=== PATIENT | female | born 1975 | race Caucasian/White ===

== ENCOUNTER 2016-10-04 13:45 | Emergency (ER) ==
[2016-10-04 13:50] VITALS: BP 108/70; TEMP 99.7; BMI 24.1
--- NOTE | 2016-10-04 16:00 | ED.PDOC ---
General ED Provider: Dr. GLEN DA SILVA JR Chief Complaint: Tooth Problem Stated Complaint: LEFT UPPER TEETH ACHING[End]since 09/22 99.7 102 18 98% 108/ 70 8/10 has pain to left upper gums/teeth after hesham--pain off and on-- now has sl swelling/tenderness to left neck[End] Time Seen by Physician: 15:59 Mode of Arrival: Walk-In Information Source: Patient Exam Limitations: No limitations Nursing and Triage Documentation Reviewed and Agree: No EENT Complaint Exam - Dental/Oral Complaint/Exam Tooth Findings: Present: Gross decay, Gross caries Teeth Picture: 1 - tender-- several carious teeth appear toneed extraction Review of Systems - Review Of Systems Constitutional: Reports: No symptoms Eyes: Reports: No symptoms Ears, Nose, Mouth, Throat: Reports: Mouth pain Respiratory: Reports: No symptoms Cardiac: Reports: No symptoms GI: Reports: No symptoms : Reports: No symptoms Musculoskeletal: Reports: No symptoms Skin: Reports: No symptoms Neurological: Reports: No symptoms Endocrine: Reports: No symptoms Hematologic/Lymphatic: Reports: No symptoms All Other Systems: Other Past Medical History - Past Medical History Previously Healthy: Yes Endocrine: Reports: None Cardiovascular: Reports: None Respiratory: Reports: None Hematological: Reports: None Gastrointestinal: Reports: None Genitourinary: Reports: None Neuro/Psych: Reports: None Musculoskeletal: Reports: None, 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 ) Cancer: Reports: None Last Menstrual Period: 3 DAYS AGO - Surgical History General Surgical History: Reports: Tubal ligation (TUBAL LIGATION) - Family History Family History: Reports: None - Social History Smoking Status: Current some day smoker Hx Substance Use: No Alcohol Screening: None - Immunizations Tetanus Shot up to Date: No Physical Exam - Physical Exam Appearance: Well-appearing Pain Distress: Moderate Eyes: ALIN, EOMI, Conjunctiva clear ENT: Nose normal (eacs excoriated bilaterally), Oropharynx normal Neck: Supple Respiratory: Airway patent, Breath sounds clear, Breath sounds equal, Respirations nonlabored Cardiovascular: RRR, Pulses normal, No rub, No murmur Critical Care Note - Critical Care Note Total Time (mins): 0 Course - Course Vital Signs: Temp Pulse Resp BP Pulse Ox 10/04/16 13:46 99.7 F H 102 H 18 108/70 98 Departure - Departure Time of Disposition: 16:10 Disposition: HOME SELF-CARE Discharge Problem: Toothache, Dental caries Instructions: Dental Caries (ED), Dental Abscess (ED), Toothache (ED) Condition: Fair Pt referred to PMD for follow-up: Yes (dentist) Additional Instructions: follow up with dentist as soon as possinle Motrin for pain Presto for pain not controlled amoxicillin for infection teeth need repair or removal will continue to cause health issues if not resolved Prescriptions: Hydrocodone Bit/Acetaminophen [Presto 5-325] 1 - 2 tab PO Q6HR PRN #12 tablet PRN Reason: pain Amoxicillin 500 mg PO TID #30 tablet Ibuprofen [Motrin] 600 mg PO QID PRN #30 tablet PRN Reason: PAIN Allergies/Adverse Reactions: Allergies No Known Allergies Allergy (Verified 10/04/16 13:46) Home Medications: Ambulatory Orders Amoxicillin 500 mg PO TID #30 tablet 10/04/16 Hydrocodone Bit/Acetaminophen [Presto 5-325] 1 - 2 tab PO Q6HR PRN #12 tablet 09/08 Ibuprofen [Motrin] 600 mg PO QID PRN #30 tablet 10/04/16
== END 2016-10-04 16:18 | disposition home or self-care (01) ==
LOC: ED 13:45
DX: K02.7 Dental root caries (principal); K04.7 Periapical abscess without sinus; K08.89 Other specified disorders of teeth and supporting structures; F17.210 Nicotine dependence, cigarettes, uncomplicated
CPT/HCPCS: 99282

== ENCOUNTER 2017-04-11 15:18 | Emergency (ER) ==
[2017-04-11 15:24] VITALS: BP 122/79; TEMP 100; BMI 22.1
--- NOTE | 2017-04-11 16:06 | ED.PDOC ---
General ED Provider: Dr. GLEN DA SILVA JR Chief Complaint: Cough Stated Complaint: onset with mild cough but has worsened now--has camped outdoors recently making it worse--also thinks has uti--has burning and freq-- pain to left lower quad--[ End ]4 days 100.0 103 20 97% 122/79 10 . kb- Time Seen by Physician: 16:05 Mode of Arrival: Walk-In Information Source: Patient Exam Limitations: No limitations Nursing and Triage Documentation Reviewed and Agree: Yes Review of Systems - Review Of Systems Constitutional: Reports: Fever, Malaise Eyes: Reports: No symptoms Ears, Nose, Mouth, Throat: Reports: Throat pain Respiratory: Reports: Cough, Short of air Cardiac: Reports: No symptoms GI: Reports: No symptoms : Reports: Burning, Dysuria, Frequency Musculoskeletal: Reports: No symptoms Skin: Reports: No symptoms Neurological: Reports: No symptoms Endocrine: Reports: No symptoms Hematologic/Lymphatic: Reports: No symptoms All Other Systems: Other Past Medical History - Past Medical History Previously Healthy: Yes Endocrine: Reports: None Cardiovascular: Reports: None Respiratory: Reports: None Hematological: Reports: None Gastrointestinal: Reports: None Genitourinary: Reports: None Neuro/Psych: Reports: None Musculoskeletal: Reports: None, 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 ) Cancer: Reports: None Last Menstrual Period: now - Surgical History General Surgical History: Reports: Tubal ligation (TUBAL LIGATION) - Family History Family History: Reports: None - Social History Smoking Status: Current every day smoker, Heavy tobacco smoker Hx Substance Use: No Alcohol Screening: None Physical Exam - Physical Exam Appearance: Well-appearing, Thin Pain Distress: Moderate Eyes: ALIN, EOMI, Conjunctiva clear ENT: Ears normal, Nose normal, Oropharynx normal Neck: Supple Respiratory: Airway patent, Breath sounds clear, Breath sounds equal, Respirations nonlabored Cardiovascular: RRR, Pulses normal, No rub, No murmur GI/: Soft, No masses, Bowel sounds normal, No Organomegaly, Tender Musculoskeletal: Normal strength, ROM intact, No edema, No calf tenderness Skin: Warm, Dry, Normal color Neurological: Sensation intact, Motor intact, Reflexes intact, Cranial nerves intact, Alert, Oriented Psychiatric: Affect appropriate, Mood appropriate Interpretation - Radiology Interpretation Radiology Interpretation By: Radiologist Radiology Results: Negative Exam Interpreted: CXR Critical Care Note - Critical Care Note Total Time (mins): 0 Course - Course Orders, Labs, Meds: Lab Review 04/11/17 16:10 Urine Color Yellow Urine Clarity Clear Urine pH 5.5 Ur Specific [place] 1.015 Urine Protein Negative Urine Glucose (UA) Negative Urine Ketones Negative Urine Blood 3+ Urine Nitrite Positive Urine Bilirubin Negative Urine Urobilinogen 0.2 Ur Leukocyte Esterase Trace Urine Microscopic RBC 5-10 Urine Microscopic WBC 10-20 Ur Squamous Epith Cells 0-2 Urine Bacteria 2+ Orders Category Date Time Status STREP SCREEN Stat LAB 04/11/17 16:20 Received UA [URINALYSIS C & S IF INDICATED] Stat LAB 04/11/17 16:10 Completed URINE CULTURE Stat LAB 04/11/17 16:35 Received CHEST, 2 VIEWS PA & LAT Stat RADS 04/11/17 16:05 Completed Vital Signs: Temp Pulse Resp BP Pulse Ox 04/11/17 15:18 100 F H 103 H 20 122/79 97 Departure - Departure Time of Disposition: 16:47 Disposition: HOME SELF-CARE 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 Qualifiers: Emphysema type: unspecified Qualifier Code: (J43.9) Emphysema, unspecified UTI (urinary tract infection) Qualifiers: Urinary tract infection type: acute cystitis Hematuria presence: without hematuria Qualifier Code: (N30.00) Acute cystitis without hematuria Instructions: Emphysema (ED), Urinary Tract Infection in Women (ED) Condition: Good Pt referred to PMD for follow-up: Yes Additional Instructions: STOP SMOKING MAY USE ROBITUSSIN; OR ROBITUSSIN DM; OR ROBITUSSIN WITH CODEINE FOR COUGH INCREASE FLUIDS TO 8 TO 12 CUPS CLEAR LIQUIDS EVERY DAY ANTIBIOTIC UNTIL GONE CHECK CULTURE RESUTS PMD TWO TO THREE DAYS Prescriptions: Sulfamethoxazole/Trimethoprim [Bactrim Ds 800/160 mg] 1 tab PO Q12HR #14 tablet Guaifenesin/Codeine Phosphate [Robitussin AC Syrup] 10 ml PO Q6H PRN #240 ml PRN Reason: Cough Phenazopyridine HCl [Pyridium] 200 mg PO TID PRN #10 tablet PRN Reason: PAIN Allergies/Adverse Reactions: Allergies No Known Allergies Allergy (Verified 04/11/17 15:25) Home Medications: Ambulatory Orders Calcium Carb & Citrate/Vit D3 [Calcium + D3 ER Tablet] 1 each PO DAILY 04/11/17 Guaifenesin/Codeine Phosphate [Robitussin AC Syrup] 10 ml PO Q6H PRN #240 ml Phenazopyridine HCl [Pyridium] 200 mg PO TID PRN #10 tablet 04/11/17 Sulfamethoxazole/Trimethoprim [Bactrim Ds 800/160 mg] 1 tab PO Q12HR #14 tablet 04/11/17
[2017-04-11 16:26] LABS: BILIRUBIN,URINE Negative (NEGATIVE); KETONES,URINE Negative (NEGATIVE); LEUKOCYTE ESTERASE ,URINE Trace (NEGATIVE); NITRITE,URINE Positive (NEGATIVE); PH,URINE 5.5 (5-9); PROTEIN,URINE Negative (NEGATIVE); URINE, BLOOD 3+ (NEGATIVE)
[2017-04-11 16:27] LABS: ADD URINE MICROSCOPIC YES
--- NOTE | 2017-04-11 16:32 | DI ---
EXAM: PA and lateral views of the chest HISTORY: Cough. COMPARISON: Chest x-ray 06/02/2016 and multiple priors FINDINGS: The cardiomediastinal silhouette is normal. There is no pneumothorax or pleural effusion . There is no consolidation, nodule or mass. The osseous structures are unremarkable. IMPRESSION: No acute cardiopulmonary process
[2017-04-11 16:36] LABS: BACTERIA,URINE 2+ (NOT PRESENT)
== END 2017-04-11 17:00 | disposition home or self-care (01) ==
LOC: ED 15:18
DX: J43.9 Emphysema, unspecified (principal); N30.00 Acute cystitis without hematuria; F17.210 Nicotine dependence, cigarettes, uncomplicated
CPT/HCPCS: 81001; 87086; 87186; 87651; 87880; 99283

== ENCOUNTER 2017-04-17 17:48 | Emergency (ER) ==
[2017-04-17 17:48] VITALS: BMI 22.1
[2017-04-17 17:54] VITALS: BP 111/72; TEMP 98.4
[2017-04-17] MEDS ORDERED: ROCEPHIN IM STA (18:21)
[2017-04-17] MEDS ORDERED: LIDOCAINE 1 % AMP 5 ML (SUTURES) IM STA (18:21)
[2017-04-17] MEDS ORDERED: PHENERGAN 25 MG/ML VIAL IM STA (18:22)
[2017-04-17 18:34] LABS: BASOPHILS # (AUTO) 0.1 K/uL (0-0.2); BASOPHILS % (AUTO) 0.6 % (0.0-3.0); EOSINOPHILS # (AUTO) 0.1 K/ul (0.0-0.7); EOSINOPHILS % (AUTO) 0.9 % (0.0-7.0); HEMATOCRIT 42.4 % (37.0-47.0); HEMOGLOBIN 14.6 g/dl (12.0-16.0); IMMATURE GRANULOCYTE % (AUTO) 0.3 % (0.0-5.0); LYMPHOCYTES # (AUTO) 2.5 K/uL (0.60-3.4); LYMPHOCYTES % (AUTO) 20.1 (10.0-50.0); MEAN CORPUSCULAR HEMOGLOBIN 31.5 pg (27.0-31.0); MEAN CORPUSCULAR HGB CONC 34.4 (31.8-35.4); MEAN CORPUSCULAR VOLUME 91.6 fl (81.0-99.0); MONOCYTES # (AUTO) 0.5 K/uL (0.4-2.0); MONOCYTES % (AUTO) 4.3 (0-10); NEUTROPHILS # (AUTO) 9.3 K/ul (2.0-6.9); NEUTROPHILS % (AUTO) 73.8; PLATELET COUNT 340 10^3/uL (140-440); RED BLOOD COUNT 4.63 10^6/ul (4.20-5.40); WHITE BLOOD COUNT 12.61 K/ul (4.6-10.2)
--- NOTE | 2017-04-17 18:38 | ED.PDOC ---
General ED Provider: Dr. TYRONE POTTS Chief Complaint: Nausea/Vomiting Stated Complaint: ABDOMINAL PAIN Time Seen by Physician: 18:00 (SEEN WITH MARTA ARCEO STUDENT AND FAMILY AT ALL TIMES ) Mode of Arrival: Walk-In Information Source: Patient Exam Limitations: No limitations Nursing and Triage Documentation Reviewed and Agree: Yes ( RESISTANT TO PERSCRIBED ANTIBIOTICS) GI Complaint Exam - Abdominal Pain Complaint/Exam Onset: Gradual Duration: 2 DAYS DIFFUSE Symptoms Are: Still present Timing: Constant Initial Severity: Mild Current Severity: Mild Location of Pain: Diffuse Character: Reports: Aching Aggravating: Reports: None Alleviating: Reports: None Associated Signs and Symptoms: Denies: Diaphoresis, Fever, Cough, Chest pain, Dizziness, Back pain, Constipation, Blood in stool, Dysuria, Urinary frequency, Decreased urine output, Decreased appetite, Vaginal bleeding, Vaginal discharge , Nausea, Vomiting, Diarrhea, Sore throat, Decreased activity AAA Risk Factors: Reports: Smoking Cardiac Risk Factors: Reports: Smoking Ectopic Risk Factors: Reports: None Ovarian Torsion Risk Factors: Reports: None Surgical Obstruction Risk Factors: Reports: None Related Surgical History: Reports: None Patient Rh Status: Unknown Differential Diagnoses: Bowel Obstruction, Constipation, Diverticulitis, Gastroenteritis, UTI Review of Systems - Review Of Systems Constitutional: Reports: No symptoms Eyes: Reports: No symptoms Ears, Nose, Mouth, Throat: Reports: No symptoms Respiratory: Reports: No symptoms Cardiac: Reports: No symptoms GI: Reports: Abdominal pain : Reports: No symptoms Musculoskeletal: Reports: No symptoms Skin: Reports: No symptoms Neurological: Reports: No symptoms Endocrine: Reports: No symptoms Hematologic/Lymphatic: Reports: No symptoms All Other Systems: Reviewed and Negative Past Medical History - Past Medical History Previously Healthy: Yes Endocrine: Reports: None Cardiovascular: Reports: None Respiratory: Reports: None Hematological: Reports: None Gastrointestinal: Reports: None Genitourinary: Reports: None Neuro/Psych: Reports: None Musculoskeletal: Reports: None, 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 ) Cancer: Reports: None Last Menstrual Period: 1 weeks ago - Surgical History General Surgical History: Reports: Tubal ligation (TUBAL LIGATION) - Family History Family History: Reports: None - Social History Smoking Status: Current every day smoker, Heavy tobacco smoker Hx Substance Use: No Alcohol Screening: None Physical Exam - Physical Exam Appearance: Well-appearing, No pain distress, Well-nourished Eyes: ALIN, EOMI, Conjunctiva clear ENT: Ears normal, Nose normal, Oropharynx normal Respiratory: Airway patent, Breath sounds clear, Breath sounds equal, Respirations nonlabored Cardiovascular: RRR, Pulses normal, No rub, No murmur GI/: Soft, Nontender, No masses, Bowel sounds normal, No Organomegaly Musculoskeletal: Normal strength, ROM intact, No edema, No calf tenderness Skin: Warm, Dry, Normal color Neurological: Sensation intact, Motor intact, Reflexes intact, Cranial nerves intact, Alert, Oriented Psychiatric: Affect appropriate, Mood appropriate Physician Notification - Case Discussed Physician Notified: ROTICH Time of Notification: 19:00 Critical Care Note - Critical Care Note Total Time (mins): 0 Course - Course Hematology/Chemistry: 04/17/17 18:28 04/17/17 18:28 Orders, Labs, Meds: Lab Review 04/17/17 04/17/17 18:28 18:45 WBC 12.61 H RBC 4.63 Hgb 14.6 Hct 42.4 MCV 91.6 MCH 31.5 H MCHC 34.4 RDW Coeff of John 12.9 Plt Count 340 Immature Gran % (Auto) 0.3 Neut % (Auto) 73.8 Lymph % (Auto) 20.1 [place] % (Auto) 4.3 Eos % (Auto) 0.9 Baso % (Auto) 0.6 Immature Gran # (Auto) 0.0 Neut # 9.3 H Lymph # 2.5 [place] # 0.5 Eos # 0.1 Baso # 0.1 Sodium 137 Potassium 3.7 Chloride 100 Carbon Dioxide 26 Anion Gap 14.7 BUN 9 Creatinine 0.87 Estimated GFR (MDRD) 71.00 BUN/Creatinine Ratio 10.34 Glucose 99 Calcium 10.2 Total Bilirubin 0.28 AST 25 ALT 17 Alkaline Phosphatase 78 Total Protein 8.0 Albumin 3.9 Globulin 4.1 Albumin/Globulin Ratio 0.95 Amylase 32 Lipase 7 L Serum , Qual Negative Urine Color Yellow Urine Clarity Clear Urine pH 5.0 Ur Specific [place] >=1.030 Urine Protein Trace Urine Glucose (UA) Negative Urine Ketones 1+ Urine Blood Trace-lysed Urine Nitrite Positive Urine Bilirubin 1+ Urine Urobilinogen 0.2 Ur Leukocyte Esterase Negative Urine Microscopic RBC 2-5 Urine Microscopic WBC 2-5 Ur Squamous Epith Cells 20-30 Calcium Oxalate Crystal 1+ Urine Bacteria 3+ Orders Category Date Time Status AMYLASE Stat LAB 04/17/17 18:28 Completed CBC W/ AUTO DIFF Stat LAB 04/17/17 18:28 Completed COMPREHENSIVE METABOLIC PANEL Stat LAB 04/17/17 18:28 Completed LIPASE Stat LAB 04/17/17 18:28 Completed SERUM Stat LAB 04/17/17 18:28 Completed URINALYSIS C & S IF INDICATED Stat LAB 04/17/17 18:45 Completed URINE CULTURE Routine LAB 04/17/17 18:45 Results Ceftriaxone Sodium [Rocephin] MEDS 04/17/17 18:21 Discontinued 1 gm IM ONCE STA Lidocaine HCl/Pf [Lidocaine 1 % Amp 5 ml (Sutures)] MEDS 04/17/17 18:21 Discontinued 2.1 ml IM ONCE STA Promethazine HCl [Phenergan 25 mg/ml Vial] MEDS 04/17/17 18:22 Discontinued 25 mg IM ONCE STA CT ABDOMEN/PELVIS WO CONTRAST Stat RADS 04/17/17 18:20 Completed Medications Discontinued Medications Generic Name Dose Route Start Last Admin Trade Name Raymond SHEIKH Reason Stop Dose Admin Ceftriaxone Sodium 1 gm 04/17/17 18:21 04/17/17 18:32 Rocephin IM 04/17/17 18:22 1 gm ONCE STA Administration Lidocaine HCl 2.1 ml 04/17/17 18:21 04/17/17 18:33 Lidocaine 1 % Amp 5 Ml (Sutures) IM 04/17/17 18:22 2.1 ml ONCE STA Administration Promethazine HCl 25 mg 04/17/17 18:22 04/17/17 18:35 Phenergan 25 Mg/Ml Vial IM 04/17/17 18:23 25 mg ONCE STA Administration Vital Signs: Temp Pulse Resp BP Pulse Ox 04/17/17 17:49 98.4 F 105 H 16 111/72 96 Departure - Departure Time of Disposition: 19:00 Disposition: HOME SELF-CARE Discharge Problem: Abdominal pain Qualifiers: Abdominal location: generalized Qualifier Code: (R10.84) Generalized abdominal pain Instructions: Abdominal Pain (ED) Condition: Good Pt referred to PMD for follow-up: Yes Additional Instructions: Please call your Family Physician as soon as possible to schedule a follow-up appointment. STOP YOUR PRESENT ANTIBITICS TARTS ALL YOUR MEDS IN AM . Allergies/Adverse Reactions: Allergies No Known Allergies Allergy (Verified 04/17/17 17:53) Home Medications: Ambulatory Orders Calcium Carb & Citrate/Vit D3 [Calcium + D3 ER Tablet] 1 each PO DAILY 04/11/17 Guaifenesin/Codeine Phosphate [Robitussin AC Syrup] 10 ml PO Q6H PRN #240 ml Sulfamethoxazole/Trimethoprim [Bactrim Ds 800/160 mg] 1 tab PO Q12HR #14 tablet 04/11/17 Disposition Discussed With: Patient, Family
[2017-04-17 18:49] LABS: SERUM PREGNANCY INTERNAL QC INTERNAL QC VALID
[2017-04-17 18:54] LABS: ALBUMIN 3.9 g/dL (3.4-5.0); ALBUMIN/GLOBULIN RATIO 0.95; ANION GAP 14.7; BILIRUBIN,TOTAL 0.28 mg/dL (0.00-1.20); BUN/CREATININE RATIO 10.34; CALCIUM 10.2 mg/dL (8.2-10.2); CREATININE 0.87 mg/dL (0.60-1.30); POTASSIUM 3.7 mmol/L (3.5-5.10)
[2017-04-17 19:19] LABS: BILIRUBIN,URINE 1+ (NEGATIVE); KETONES,URINE 1+ (NEGATIVE); LEUKOCYTE ESTERASE ,URINE Negative (NEGATIVE); NITRITE,URINE Positive (NEGATIVE); PROTEIN,URINE Trace (NEGATIVE); URINE, BLOOD Trace-lysed (NEGATIVE)
[2017-04-17 19:20] LABS: ADD URINE MICROSCOPIC YES
[2017-04-17 19:31] LABS: BACTERIA,URINE 3+ (NOT PRESENT)
--- NOTE | 2017-04-17 20:14 | CT ---
EXAM: CT abdomen pelvis without contrast HISTORY: Abdominal pain COMPARISON: None. TECHNIQUE: Serial axial images of the abdomen pelvis were performed from the lung bases through the inferior pelvis without contrast. These were viewed in multiple planes. FINDINGS: There is some peribronchial thickening in the left lower lobe, probable chronic bronchitis Abdomen. There is no intrperitoneal free air. The liver, spleen, pancreas, adrenal glands are unremarkable. There is no cholelithiasis or biliary ductal dilatation seen. There is no ascites. There is a la rge volume of fluid retained within the stomach. There is no small bowel obstruction or bowel wall thickening. The appendix is normal. Aorta is normal caliber. No abdominal adenopathy. There is a 0.21 cm nonobstructing calculus mid right kidney. There is a 0.53 cm calculus inferior p ole of the left kidney. There is a possible 0.1-0.2 cm calculus mid left ureter at level pelvic inl et, image 79 axial sequence. Pelvis. Uterus midline. No obvious adnexal mass. No hernia. Skeletal structures. No osteolytic or blastic changes. Minimal disc space narrowing L5-L1 level. IMPRESSION: 1. There is no bowel obstruction. Appendix normal. Moderate amount of fluid retained within the s tomach possible gastroparesis. Correlate clinically regarding mild inflammation proximal GI tract 2. There is a small 0.21 cm nonobstructing calculus mid right kidney and a 0.53 cm nonobstructing ca lculus inferior pole of the left kidney. No perinephric edema There is a possible 0.1 to 0.2 cm oli cification mid left ureter at the pelvic inlet, axial image 79.
== END 2017-04-17 20:21 | disposition home or self-care (01) ==
LOC: ED 17:48
DX: R10.84 Generalized abdominal pain (principal); R11.2 Nausea with vomiting, unspecified; F17.210 Nicotine dependence, cigarettes, uncomplicated
CPT/HCPCS: 36415; 80053; 81001; 82150; 83690; 84703; 85025; 87086; 87186; 96372; 99283

== ENCOUNTER 2017-07-16 09:31 | Emergency (ER) ==
[2017-07-16 09:38] VITALS: BP 119/67; TEMP 99.2; BMI 20.7
[2017-07-16] MEDS ORDERED: ROCEPHIN IM STA (10:27)
[2017-07-16] MEDS ORDERED: LIDOCAINE HCL 1% SDV SUBCUT STA (10:27)
[2017-07-16] MEDS ORDERED: NORCO 10-325 PO STA (10:28)
[2017-07-16] MEDS ORDERED: DECADRON 4 MG/ML SDV IM STA (10:28)
[2017-07-16 10:37] LABS: FLU INTERNAL QC INTERNAL QC VALID; RAPID FLU A NEGATIVE (NEGATIVE); RAPID FLU B NEGATIVE (NEGATIVE)
[2017-07-16 10:56] LABS: MONO INTERNAL QC INTERNAL QC VALID
--- NOTE | 2017-07-16 11:23 | US ---
EXAM: Thyroid ultrasound HISTORY: Pain COMPARISON: None TECHNIQUE: Thyroid ultrasound was performed FINDINGS: Right thyroid measures 1.2 x 1.6 x 4.1 cm. Left thyroid measures 1.2 x 1.7 x 4.2 cm. Thy roid isthmus measures 0.3 cm. Thyroid normal in echogenicity and vascularity. There is a hypoechoic nodule in the right mid thyroid measuring 0.3 cm. There is a hypoechoic nodule in the left mid thyr oid measuring 0.5 cm. There are two mildly prominent lymph nodes in the right neck that retain their fatty hayes, measuring 0.7 x 1.3 x 1.4 cm and 1.0 x 2.0 x 2.3 cm. These correspond with area of patient "knot". IMPRESSION: 1. Two nonspecific mildly prominent lymph nodes in the right neck that retain their fatty hayes, yanira esponding to area of clinical concern. Clinical follow-up is recommended. CT can be performed for f urther evaluation as indicated. 2. Two sub centimeter thyroid nodules. Recommend sonographic follow-up 12 months reevaluation.
--- NOTE | 2017-07-16 11:24 | ED.PDOC ---
General ED Provider: Dr. TYRONE POTTS Chief Complaint: Sore Throat Stated Complaint: SORE THROAT Time Seen by Physician: 09:33 Mode of Arrival: Walk-In Information Source: Patient Exam Limitations: No limitations Nursing and Triage Documentation Reviewed and Agree: Yes EENT Complaint Exam - Throat Complaint/Exam Onset/Duration: 2 DAYS Symptoms Are: Still present Timimg: Constant Initial Severity: Moderate Current Severity: Moderate Aggravating: Reports: Eating Alleviating: Reports: None Associated Signs and Symptoms: Reports: Dysphagia, Chills, Cough, Nasal congestion. Denies: Fever, Drooling, Foreign body sensation, Wheezing, Hoarseness, Sinus discomfort, Difficulty breathing, Lethargy, Irritability, Decreased activity, Vomiting, Diarrhea, Decreased hearing, Ear drainage Uvula Midline: Yes Tara-tonsillar Fluctuence: No Scarlatinaform Rash Present: No Stridor Present: No Sinus Tenderness Present: No Tonsillar Hypertrophy Present: No Tonsillar Exudate Present: No Tara-tonsillar Swelling Present: No Adenopathy Present: No Splenomegaly Present: No Differential Diagnoses: Mononucleosis, Pharyngitis Review of Systems - Review Of Systems Constitutional: Reports: Malaise Eyes: Reports: No symptoms Ears, Nose, Mouth, Throat: Reports: Throat pain Respiratory: Reports: No symptoms Cardiac: Reports: No symptoms GI: Reports: No symptoms : Reports: No symptoms Musculoskeletal: Reports: No symptoms Skin: Reports: No symptoms Neurological: Reports: No symptoms Endocrine: Reports: No symptoms Hematologic/Lymphatic: Reports: No symptoms All Other Systems: Reviewed and Negative Past Medical History - Past Medical History Previously Healthy: Yes Endocrine: Reports: None Cardiovascular: Reports: None Respiratory: Reports: None Hematological: Reports: None Gastrointestinal: Reports: None Genitourinary: Reports: None Neuro/Psych: Reports: None Musculoskeletal: Reports: None, 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 - Surgical History General Surgical History: Reports: Tubal ligation (TUBAL LIGATION) - Family History Family History: Reports: None - Social History Smoking Status: Current every day smoker, Heavy tobacco smoker Hx Substance Use: No Alcohol Screening: None Physical Exam - Physical Exam Appearance: Well-appearing, No pain distress, Well-nourished Eyes: ALIN, EOMI, Conjunctiva clear ENT: Erythema, Exudate Respiratory: Airway patent, Breath sounds clear, Breath sounds equal, Respirations nonlabored Cardiovascular: RRR, Pulses normal, No rub, No murmur GI/: Soft, Nontender, No masses, Bowel sounds normal, No Organomegaly Musculoskeletal: Normal strength, ROM intact, No edema, No calf tenderness Skin: Warm, Dry, Normal color Neurological: Sensation intact, Motor intact, Reflexes intact, Cranial nerves intact, Alert, Oriented Psychiatric: Affect appropriate, Mood appropriate Critical Care Note - Critical Care Note Total Time (mins): 0 Course - Course Orders, Labs, Meds: Lab Review 07/16/17 07/16/17 10:10 10:40 Infectious [place] Assay Negative Influenza A (Rapid) Negative Influenza B (Rapid) Negative Orders Category Date Time Status MOLECULAR GROUP A STREP Stat LAB 07/16/17 10:10 Results MONONUCLOSIS SCREEN Stat LAB 07/16/17 10:40 Completed RAPID FLU A/B Stat LAB 07/16/17 10:10 Completed RAPID STREP SCREEN [STREP SCREEN] Stat LAB 07/16/17 10:10 Results Ceftriaxone Sodium [Rocephin] MEDS 07/16/17 10:27 Discontinued 1 gm IM ONCE STA Dexamethasone 4 mg/ml Inj [Decadron 4 mg/ml Sdv] MEDS 07/16/17 10:28 Discontinued 4 mg IM ONCE STA Hydrocodone Bit/Acetaminophen [Wilmer 10-325] MEDS 07/16/17 10:28 Discontinued 1 tab PO ONCE STA Lidocaine HCl/Pf [Lidocaine HCl 1% Sdv] MEDS 07/16/17 10:27 Discontinued 5 ml SUBCUT ONCE STA ULTRASOUND THYROID [U/S THYROID] Stat RADS 07/16/17 10:27 Taken Medications Discontinued Medications Generic Name Dose Route Start Last Admin Trade Name Freq PRN Reason Stop Dose Admin Acetaminophen/Hydrocodone Bitart 1 tab 07/16/17 10:28 07/16/17 11:05 [place] 10-325 PO 07/16/17 10:29 1 tab ONCE STA Administration Ceftriaxone Sodium 1 gm 07/16/17 10:27 07/16/17 11:00 Rocephin IM 07/16/17 10:28 1 gm ONCE STA Administration Dexamethasone Sodium Phosphate 4 mg 07/16/17 10:28 07/16/17 10:57 Decadron 4 Mg/Ml Sdv IM 07/16/17 10:29 4 mg ONCE STA Administration Lidocaine HCl 5 ml 07/16/17 10:27 07/16/17 10:59 Lidocaine Hcl 1% Sdv SUBCUT 07/16/17 10:28 5 ml ONCE STA Administration Vital Signs: Temp Pulse Resp BP Pulse Ox 07/16/17 09:33 99.2 F 110 H 20 119/67 98 Departure - Departure Time of Disposition: 11:22 (THIS PT WAS SEEN WITH NURSE AT BEDSIDE AT ALL TIMES( SHIRA). A LYMPH NODE WAS NOTED ON ANTERIOR NECK PT STATED IT IS 2 DAYS IN DURATION AND ON THE XAM WAS ENTIRELY MOBITE AND TENDER .) Disposition: HOME SELF-CARE Discharge Problem: Sore throat symptom, Streptococcal sore throat, Lymphadenopathy of left cervical region Instructions: Pharyngitis (ED), Lymphadenopathy (ED) Condition: Good Pt referred to PMD for follow-up: Yes (URGED TO FOLLOW UP WITH CLINIC) Additional Instructions: Please call your Family Physician as soon as possible to schedule a follow-up appointment. START YOUR MEDS IN AM EXCEPT FOR PAIN MEDS Prescriptions: Azithromycin [Zithromax] 500 mg PO DIRECTED #6 tablet Allergies/Adverse Reactions: Allergies No Known Allergies Allergy (Verified 07/16/17 09:39) Home Medications: Ambulatory Orders Azithromycin [Zithromax] 500 mg PO DIRECTED #6 tablet 07/16/17
== END 2017-07-16 11:48 | disposition home or self-care (01) ==
LOC: ED 09:31
DX: J02.9 Acute pharyngitis, unspecified (principal); R59.0 Localized enlarged lymph nodes; E04.1 Nontoxic single thyroid nodule; F17.210 Nicotine dependence, cigarettes, uncomplicated
CPT/HCPCS: 36415; 86308; 87651; 87804; 87880; 96372; 99283

== ENCOUNTER 2018-11-09 12:41 | Emergency (ER) | payer OTHER ==
[2018-11-09 12:48] VITALS: BP 114/66; TEMP 98.4; BMI 21.6
[2018-11-09] MEDS ORDERED: TORADOL IVP STA (12:57)
--- NOTE | 2018-11-09 13:01 | ED.PDOC ---
General Stated Complaint: alie had flu symptoms with pain in my back with breathing Time Seen by Physician: 12:50 Mode of Arrival: Walk-In Information Source: Patient Exam Limitations: No limitations Nursing and Triage Documentation Reviewed and Agree: Yes Does patient meet sepsis criteria?: No System Inflammatory Response Syndrome: Not Applicable <ROSAFREDDYMILDRED - Last Filed: 11/09/18 13:06> <JOHNATHANMILDRED - Last Filed: 11/09/18 15:25> ED Provider: Dr. MILDRED MANN Chief Complaint: Shortness of Air Primary Care Provider: OCTAVIO WILKINSON Sepsis Protocol: For patient's 13 years and over: Temp is 96.8 and below OR 101 and greater Pulse >90 BPM Resp >20/minute Acutely Altered Mental Status Are patient's symptoms suggestive of a new infection, such as: -Pneumonia -Skin, Soft Tissue -Endocarditis -UTI -Bone, Joint Infection -Implantable Device -Acute Abdominal Infection -Wound Infection -Meningitis -Blood Stream Catheter Infection -Unknown Respiratory Complaint Exam - Respiratory Complaint/Exam Onset/Duration: 24 hrs Symptoms Are: Still present Timing: Constant Initial Severity: Mild Current Severity: Mild Location: Chest Character: Reports: Non-productive cough Aggravating: Reports: URI Associated Signs and Symptoms: Reports: Dyspnea, Fever, Pleuritic chest pain, URI. Denies: Rapid breathing History of Healthcare-Acquired Pneumonia: No Related Surgical History: Reports: None Pulmonary Embolism Risk Factors: None Home Oxygen Use: No Recent Stress Test: No Recent Echo/LV Function: No Current Antibiotic Use: No Current Asthma Medication Use: No Respiratory Distress: None Inadequate Respiratory Effort: No Dysphagia Present: No Stridor Present: No JVD Present: No Accessory Muscle Use: No Retractions: Not Present Diminished Breath Sounds: No Sinus Tenderness: None Grunting Respirations: No Kussmaul Respirations: No Differential Diagnoses: Chest Wall Pain, Pneumonia, Pulmonary Embolism, Bronchitis, Influenza <ROSAFREDDYMILDRED - Last Filed: 11/09/18 13:06> Review of Systems - Review Of Systems Constitutional: Reports: Chills, Fever, Weakness Eyes: Reports: No symptoms Ears, Nose, Mouth, Throat: Reports: No symptoms Respiratory: Reports: Cough Cardiac: Reports: No symptoms GI: Reports: No symptoms : Reports: No symptoms Musculoskeletal: Reports: Back pain Skin: Reports: No symptoms Neurological: Reports: No symptoms Endocrine: Reports: No symptoms Hematologic/Lymphatic: Reports: No symptoms All Other Systems: Reviewed and Negative <DESHAUNMILDRED Last Filed: 11/09/18 13:06> Past Medical History - Past Medical History Previously Healthy: Yes Endocrine: Reports: None Cardiovascular: Reports: None Respiratory: Reports: None Hematological: Reports: None Gastrointestinal: Reports: None Genitourinary: Reports: None Neuro/Psych: Reports: None Musculoskeletal: Reports: None, 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 ) Cancer: Reports: None Last Menstrual Period: 2 weeks ago - Surgical History General Surgical History: Reports: Tubal ligation (TUBAL LIGATION) - Family History Family History: Reports: None - Social History Smoking Status: Current every day smoker Hx Substance Use: No Alcohol Screening: None - Immunizations Tetanus Shot up to Date: Yes <DESHAUNMILDRED Last Filed: 11/09/18 13:06> Physical Exam - Physical Exam Appearance: Well-appearing, No pain distress, Well-nourished Pain Distress: Mild Eyes: ALIN, EOMI, Conjunctiva clear ENT: Ears normal, Nose normal, Oropharynx normal Neck: Supple Respiratory: Airway patent Cardiovascular: RRR, Pulses normal, No rub, No murmur GI/: Soft, Nontender, No masses, Bowel sounds normal, No Organomegaly Musculoskeletal: Normal strength, ROM intact, No edema, No calf tenderness Skin: Warm, Dry, Normal color Neurological: Sensation intact Psychiatric: Affect appropriate, Mood appropriate <DESHAUNMILDRED Last Filed: 11/09/18 13:06> Interpretation - EKG Interpretation Time of EKG #1: 13:06 Rate: Normal Rhythm: Sinus Ectopy: None [place]: Right ST Segment: Normal Interpretation: rbbb <MILDRED MEADE Last Filed: 11/09/18 13:06> Physician Notification - Case Discussed Physician Notified: dr mann Time of Notification: 13:00 <MILDRED MEADE Last Filed: 11/09/18 13:06> Critical Care Note - Critical Care Note Total Time (mins): 30 <MILDRED MANN Last Filed: 11/09/18 15:25> Course - Course Hematology/Chemistry: 11/09/18 13:10 11/09/18 13:10 <MILDRED MANN - Last Filed: 11/09/18 15:25> - Course Orders, Labs, Meds: Lab Review 11/09/18 11/09/18 11/09/18 13:10 13:10 13:25 WBC 9.45 RBC 4.34 Hgb 13.7 Hct 41.4 MCV 95.4 MCH 31.6 H MCHC 33.1 RDW Coeff of John 12.4 Plt Count 241 Immature Gran % (Auto) 0.3 Neut % (Auto) 69.8 Lymph % (Auto) 22.1 [place] % (Auto) 5.5 Eos % (Auto) 1.5 Baso % (Auto) 0.8 Immature Gran # (Auto) 0.0 Neut # (Auto) 6.6 Lymph # (Auto) 2.1 [place] # (Auto) 0.5 Eos # (Auto) 0.1 Baso # (Auto) 0.1 Sodium 139.9 Potassium 4.08 Chloride 102.1 Carbon Dioxide 28.2 Anion Gap 13.68 BUN 7.6 Creatinine 0.69 Estimated GFR (MDRD) 92.00 BUN/Creatinine Ratio 11.01 Glucose 78.9 Calcium 9.14 Total Bilirubin 0.24 AST 23.6 ALT 21.6 Alkaline Phosphatase 68.6 Total Protein 7.61 Albumin 4.06 Globulin 3.55 Albumin/Globulin Ratio 1.14 Influ A Molecular Assay Negative by naat Influ B Molecular Assay Negative by naat Orders Category Date Time Status EKG-(ED ONLY) Stat CARDIO 11/09/18 12:56 Completed NPO REMINDER: IMAGING ONCE CARE 11/09/18 12:56 Completed IV [ED IV/MEDIPORT/POWERPORT] .ONCE EMERGENCY 11/09/18 12:56 Active BLOOD CULTURE (ED ONLY) Stat LAB 11/09/18 13:10 Received CBC W/ AUTO DIFF Stat LAB 11/09/18 13:10 Completed COMPREHENSIVE METABOLIC PANEL Stat LAB 11/09/18 13:10 Completed FLU A/B MOLECULAR Stat LAB 11/09/18 13:25 Completed MOLECULAR GROUP A STREP Stat LAB 11/09/18 13:25 Completed 0.9 % Sodium Chloride [Saline Flush] MEDS 11/09/18 12:56 Ordered 1 syr IVF PRN PRN Ceftriaxone Sodium [Rocephin] MEDS 11/09/18 15:13 Stat 1 gm IM ONCE STA Ketorolac Tromethamine [Toradol] MEDS 11/09/18 12:57 Discontinued 30 mg IVP ONCE STA Lidocaine HCl/Pf [Lidocaine HCl 1% Sdv] MEDS 11/09/18 15:13 Stat 2.1 ml IM ONCE STA CT CHEST PE PROTOCOL Stat RADS 11/09/18 12:56 Completed Medications Generic Name Dose Route Start Last Admin Trade Name Freq PRN Reason Stop Dose Admin Sodium Chloride 1 syr 11/09/18 12:56 11/09/18 13:06 Saline Flush IVF 1 syr PRN PRN Administration To flush IV Discontinued Medications Generic Name Dose Route Start Last Admin Trade Name Freq PRN Reason Stop Dose Admin Ketorolac Tromethamine 30 mg 11/09/18 12:57 11/09/18 13:06 Toradol IVP 11/09/18 12:58 30 mg ONCE STA Administration Vital Signs: Temp Pulse Resp BP Pulse Ox 11/09/18 12:44 98.4 F 115 H 20 114/66 99 Departure <MILDRED MEADE - Last Filed: 11/09/18 13:06> - Departure Time of Disposition: 15:15 Pt referred to PMD for follow-up: Yes (1 week) IPMP verified?: No Disposition Discussed With: Patient (patient states her medicaid assigned provider is DR WILKINSON.) <MILDRED MANN - Last Filed: 11/09/18 15:25> - Departure Disposition: HOME SELF-CARE Discharge Problem: RLL pneumonia Instructions: Pneumonitis (ED) Condition: Good Additional Instructions: Take meds as directed Schedule follow up apt with PCP in next wk Take Tylenol for pain or temperature elevation above 101 patient states her medicaid assigned provider is DR WILKINSON. Must call his office for acceptance into his practice and follow up Prescriptions: Azithromycin [Zithromax] 250 mg PO DAILY 5 Days #6 tablet Cefuroxime Axetil [Cefuroxime] 500 mg PO BID #14 tablet Allergies/Adverse Reactions: Allergies No Known Allergies Allergy (Verified 07/16/17 09:39) Home Medications: Ambulatory Orders Azithromycin [Zithromax] 250 mg PO DAILY 5 Days #6 tablet 11/09/18 Cefuroxime Axetil [Cefuroxime] 500 mg PO BID #14 tablet 11/09/18
--- NOTE | 2018-11-09 14:09 | CT ---
EXAM: CTA chest with contrast HISTORY: Pleuritic chest pain, flu-like symptoms. TECHNIQUE: Multi-slice transaxial helical PE protocol. Multiplanar MIP and 3D volume rendered image s are provided. COMPARISON: Chest radiograph 04/11/2017 FINDINGS: There are no main, lobar, or segmental pulmonary arterial filling defects. The main pulmonary artery is normal in diameter. The heart is normal in size. Enlarged subcarinal lymph node measures 1.5 cm in short axis. Right perihilar soft tissue thickening and/or adenopathy is present measuring up to 1 .2 cm in short axis. The visualized thyroid appears unremarkable. There is no axillary adenopathy. The partially imaged u pper abdomen appears grossly unremarkable. Osseous structures appear grossly unremarkable. Mild emphysematous changes of the lungs are present. Right basilar patchy airspace opacities are pre sent. Right lower lobe endobronchial filling defects are seen adjacent to the patchy airspace opacit ies. No evidence of pleural effusion is seen. 3 mm left upper lobe noncalcified pulmonary nodule is seen on axial image 25. Left upper lobe calcified granuloma is present. IMPRESSION: 1. No evidence of pulmonary embolism. 2. Right lower lobe pneumonia. Recommend follow-up chest radiographs or CT chest to demonstrate com plete resolution. 3. Right lower lobe endobronchial filling defects which can be seen with pus or mucous. 4. Right perihilar soft tissue thickening/adenopathy and subcarinal adenopathy, most likely reactive . 5. Mild pulmonary emphysema. 6. 3 mm left upper lobe tiny noncalcified pulmonary nodule. An optional follow-up CT chest in 12 mo nths is recommended per Fleischner Society guidelines.
[2018-11-09] MEDS ORDERED: ROCEPHIN IM STA (15:13)
[2018-11-09] MEDS ORDERED: LIDOCAINE HCL 1% SDV IM STA (15:13)
== END 2018-11-09 15:32 | disposition home or self-care (01) ==
LOC: ED 12:41
DX: R06.00 Dyspnea, unspecified (principal); J06.9 Acute upper respiratory infection, unspecified; R50.9 Fever, unspecified; R07.81 Pleurodynia; R53.1 Weakness; R05 Cough; M54.9 Dorsalgia, unspecified; J18.9 Pneumonia, unspecified organism
CPT/HCPCS: 36415; 80053; 85025; 87040; 87502; 87651; 93005; 93010; 96372; 99283